=== PATIENT | female | born 1990 | race Caucasian/White ===

== ENCOUNTER 2017-04-13 16:13 | Outpatient (CLI) | payer OTHER, BC ==
[2012-08-15 20:10] VITALS: BP 150/93
== END 2017-04-13 16:14 ==
LOC: LABRHC 16:13
PROVIDERS: ATTEND Family Medicine
DX: Z12.4 Encounter for screening for malignant neoplasm of cervix (principal)
CPT/HCPCS: 88148; G0143

== ENCOUNTER 2017-04-22 08:17 | Outpatient (CLI) | payer OTHER, BC ==
[2012-08-15 20:10] VITALS: BP 150/93
[2017-04-22 09:14] LABS: eGFR (African) > 60; eGFR (Non-African) > 60
== END 2017-04-22 08:19 ==
LOC: LAB 08:17
PROVIDERS: ATTEND Family Medicine
DX: Z00.00 Encounter for general adult medical examination without abnormal findings (principal)
CPT/HCPCS: 36415; 80053; 80061

== ENCOUNTER 2018-04-27 16:25 | Outpatient (CLI) | payer OTHER, BC ==
[2012-08-15 20:10] VITALS: BP 150/93
== END 2018-04-27 16:26 ==
LOC: LABRHC 16:25
PROVIDERS: ATTEND Physician Assistant
DX: Z12.4 Encounter for screening for malignant neoplasm of cervix (principal)
CPT/HCPCS: 88148; G0143